=== PATIENT | male | born 1995 | race Two or more races ===

== ENCOUNTER 2023-03-12 02:15 | Emergency (ER) | payer OTHER ==
[~2023-03-12] VITALS: Ht 177.8 cm; Wt 77.1 kg
[2023-03-12 02:26] VITALS: BP 134/78; TEMP 97.7; O2SAT 97
[2023-03-12] MEDS ORDERED: IBUPROFEN 400 MG TABLET PO ONE (02:30)
[2023-03-12] MEDS ORDERED: IBUPROFEN 400 MG TABLET ONE (02:31)
[2023-03-12] MEDS ORDERED: IBUP-1953 PO (04:17)
== END 2023-03-12 04:26 | disposition home or self-care (01) ==
LOC: ER 02:30
DX: S92.422A Displaced fracture of distal phalanx of left great toe, initial encounter for closed fracture (principal); J45.909 Unspecified asthma, uncomplicated; W22.8XXA Striking against or struck by other objects, initial encounter; Y93.89 Activity, other specified; Y92.89 Other specified places as the place of occurrence of the external cause; Y99.8 Other external cause status
CPT/HCPCS: 73660-TC

== ENCOUNTER 2024-03-17 11:32 | Emergency (ER) | payer OTHER ==
[~2024-03-17] VITALS: Ht 180.3 cm; Wt 77.1 kg
[~2024-03-17 11:32] MED LIST: IBUP-1953 PO
[2024-03-17 11:51] VITALS: TEMP 97.9
[2024-03-17] MEDS ORDERED: IBUP-1490 PO (12:27)
[2024-03-17 13:05] VITALS: BP 128/84; O2SAT 100
== END 2024-03-17 13:05 | disposition home or self-care (01) ==
LOC: ER 11:32
DX: S43.52XA Sprain of left acromioclavicular joint, initial encounter (principal); M25.512 Pain in left shoulder; J45.909 Unspecified asthma, uncomplicated; V43.52XA Car driver injured in collision with other type car in traffic accident, initial encounter; Y93.89 Activity, other specified; Y92.488 Other paved roadways as the place of occurrence of the external cause; Y99.8 Other external cause status